=== PATIENT | male | born 1935 | race Caucasian/White ===

== ENCOUNTER 2020-07-17 09:21 | Observation (INO) ==
[2020-07-17] MEDS ORDERED: *HR* Heparin 5,000 UNIT/ML VIAL IVP PRN ×2 (09:57)
[2020-07-17] MEDS ORDERED: *HR* Heparin 5,000 UNIT/ML VIAL IVP ONE (09:57)
[2020-07-17] MEDS ORDERED: Heparin 25,000UNIT/250ML 1/2NS 25,000 UNIT/250 ML IV.SOLN IVC SCH (10:00)
[2020-07-17 10:09] LABS: Alanine Aminotransferase 13 Units/L (7-52); Albumin 4.3 g/dL (3.5-5.7); Albumin/Globulin Ratio 1.5 (1.1-2.2); Alkaline Phosphatase 58 Units/L (34-104); Aspartate Amino Transferase 14 Units/L (13-39); BUN/Creatinine Ratio 17 (6-26); Bilirubin,Direct 0.1 mg/dL (0.0-0.2); Bilirubin,Indirect 0.3 mg/dL (0.0-1.0); Bilirubin,Total 0.4 mg/dL (0.3-1.0); Blood Urea Nitrogen 17 mg/dL (8-23); Calcium 9.5 mg/dL (8.6-10.3); Carbon Dioxide 26 mEq/L (23-29); Chloride 104 mEq/L (98-107); Globulin 2.8 g/dL (2.4-3.5); Glucose 104 mg/dL (70-105); Lipase 28 Units/L (11-82); Osmolality,Calculated 286 (280-300); Potassium 4.2 mEq/L (3.5-5.1); Sodium 137 mEq/L (136-145); Total Protein 7.1 g/dL (6.4-8.9); Troponin I < 0.03 ng/mL (< 0.04); eGFR For African Americans > 60 (> 60); eGFR For Non-African Americans > 60 (> 60)
[2020-07-17 10:14] LABS: Basophils % 0.4 %; Eosinophils # 0.1 K/mcL (0.0-0.6); Eosinophils % 1.3 %; Hematocrit 42.8 % (37.5-50.1); Hemoglobin 13.9 g/dL (12.9-16.9); Immature Granulocytes % 0.2 % (0-4); Lymphocytes # 0.6 K/mcL (0.6-4.6); Lymphocytes % 10.8 %; Mean Corpuscular HGB Conc 32.5 g/dL (31.6-35.5); Mean Corpuscular Hemoglobin 31.3 pg (28.0-33.3); Mean Corpuscular Volume 96.4 fL (83.0-100.0); Mean Platelet Volume 10.1 fL (9.4-12.4); Monocytes # 0.4 K/mcL (0.0-1.3); Monocytes % 8.1 %; Neutrophils # 4.2 K/mcL (1.6-8.9); Platelet Count 206 K/mcL (140-400); Red Blood Count 4.44 M/mcL (4.19-5.50); Red Cell Distribution Width 13.4 % (11.5-14.5); Segmented Neutrophils % 79.2 %; White Blood Count 5.3 K/mcL (4.3-11.1)
[2020-07-17 10:28] LABS: Prothrombin Time 11.3 Seconds (9.4-12.1)
[2020-07-17 10:30] LABS: Activated Partial Thrombo Time 32.9 Seconds (26.0-36.0)
[2020-07-17] MEDS ORDERED: Heparin 25,000UNIT/250ML 1/2NS 25,000 UNIT/250 ML IV.SOLN ONE (10:31)
[2020-07-17 10:32] LABS: Heparin anti-factor XA UFH < 0.04 IU/mL (0.30-0.70)
[2020-07-17] MEDS ORDERED: Naloxone 0.4 MG/ML INJ IVP PRN (11:13)
[2020-07-17 11:40] LABS: Chol/HDL Ratio 2.9 (0-4.9); Cholesterol 170 mg/dL (< 200); HDL Cholesterol 58 mg/dL (40-59); LDL Cholesterol,Calculated 93 mg/dL (< 100); Magnesium 2.1 mg/dL (1.6-2.6); Phosphorous 2.1 mg/dL (2.7-4.5); Triglycerides 94 mg/dL (< 150)
[2020-07-17] MEDS ORDERED: carvediloL 6.25 MG TABLET PO SCH (12:14)
[2020-07-17] MEDS ORDERED: ISOVUE-370 200 ML INFUS..BTL ONE ×2 (14:53→15:55)
[2020-07-17] MEDS ORDERED: Heparin 1,000 UNITS/500 mL 500 ML ONE (14:53)
[2020-07-17] MEDS ORDERED: 0.9 % Sodium Chloride 2,000 ML ONE (14:53)
[2020-07-17] MEDS ORDERED: *HR* Heparin 10,000 UNIT/10 ML VIAL ONE (14:53)
[2020-07-17] MEDS ORDERED: Nitroglycerin 1,000 MCG/10 ML VIAL IV ONE (14:54)
[2020-07-17] MEDS ORDERED: *HR* FentaNYL (PF) 100 MCG/2 ML VIAL ONE (15:26)
[2020-07-17] MEDS ORDERED: *HR* Midazolam HCl 2 MG/2 ML VIAL ONE (15:26)
[2020-07-17] MEDS ORDERED: *HR* Bivalirudin 250 MG VIAL IVC ONE (15:47)
[2020-07-17] MEDS ORDERED: *HR* Ticagrelor 90 MG TABLET ONE (15:57)
[2020-07-17] MEDS ORDERED: Perflutren Lipid Microsphere 1.3 ML in 0.9 % Sodium Chloride 8.7 ML IVP PRN (16:19)
[2020-07-17] MEDS ORDERED: 0.9 % Sodium Chloride 1,000 ML IVC SCH (16:30)
[2020-07-17] MEDS: carvediloL 6.25 MG TABLET PO SCH (18:25)
[2020-07-17] MEDS: Aspirin 81 MG TAB.CHEW PO SCH (18:25)
[2020-07-17] MEDS ORDERED: *HR* Atropine Sulfate 1 MG/10 ML SYRINGE ONE (18:58)
[2020-07-17 20:10] LABS: Hematocrit 37.1 % (37.5-50.1); Hemoglobin 12.3 g/dL (12.9-16.9)
[2020-07-17] MEDS ORDERED: 0.9 % Sodium Chloride 1,000 ML ONE (23:24)
[2020-07-18 03:38] LABS: Hematocrit 38.4 % (37.5-50.1); Hemoglobin 12.5 g/dL (12.9-16.9); Mean Corpuscular HGB Conc 32.6 g/dL (31.6-35.5); Mean Corpuscular Hemoglobin 30.6 pg (28.0-33.3); Mean Corpuscular Volume 94.1 fL (83.0-100.0); Mean Platelet Volume 9.9 fL (9.4-12.4); Platelet Count 192 K/mcL (140-400); Red Blood Count 4.08 M/mcL (4.19-5.50); Red Cell Distribution Width 13.5 % (11.5-14.5); White Blood Count 5.2 K/mcL (4.3-11.1)
[2020-07-18 04:00] LABS: BUN/Creatinine Ratio 17 (6-26); Blood Urea Nitrogen 14 mg/dL (8-23); Calcium 8.5 mg/dL (8.6-10.3); Carbon Dioxide 24 mEq/L (23-29); Chloride 110 mEq/L (98-107); Glucose 128 mg/dL (70-105); Osmolality,Calculated 286 (280-300); Potassium 3.9 mEq/L (3.5-5.1); Sodium 137 mEq/L (136-145); eGFR For African Americans > 60 (> 60); eGFR For Non-African Americans > 60 (> 60)
[2020-07-18] MEDS: carvediloL 6.25 MG TABLET PO SCH ×2 (07:55→16:55)
[2020-07-18] MEDS: Aspirin 81 MG TAB.CHEW PO SCH (07:55)
[2020-07-18] MEDS: *HR* Ticagrelor 90 MG TABLET PO SCH ×2 (07:55→20:21)
[2020-07-18] MEDS: *HR* Heparin 5,000 UNIT/ML VIAL SQ SCH (16:55)
[2020-07-19 04:38] VITALS: BP 95/54
[2020-07-19] MEDS: *HR* Heparin 5,000 UNIT/ML VIAL SQ SCH (06:02)
[2020-07-19 06:28] LABS: Hematocrit 37.8 % (37.5-50.1); Hemoglobin 12.3 g/dL (12.9-16.9); Mean Corpuscular HGB Conc 32.5 g/dL (31.6-35.5); Mean Corpuscular Hemoglobin 30.5 pg (28.0-33.3); Mean Corpuscular Volume 93.8 fL (83.0-100.0); Mean Platelet Volume 9.8 fL (9.4-12.4); Platelet Count 169 K/mcL (140-400); Red Blood Count 4.03 M/mcL (4.19-5.50); Red Cell Distribution Width 13.5 % (11.5-14.5); White Blood Count 5.6 K/mcL (4.3-11.1)
[2020-07-19 06:44] LABS: BUN/Creatinine Ratio 15 (6-26); Blood Urea Nitrogen 12 mg/dL (8-23); Calcium 8.9 mg/dL (8.6-10.3); Carbon Dioxide 27 mEq/L (23-29); Chloride 108 mEq/L (98-107); Glucose 98 mg/dL (70-105); Magnesium 1.9 mg/dL (1.6-2.6); Osmolality,Calculated 286 (280-300); Sodium 138 mEq/L (136-145); eGFR For African Americans > 60 (> 60); eGFR For Non-African Americans > 60 (> 60)
[2020-07-19] MEDS: *HR* Ticagrelor 90 MG TABLET PO SCH (08:37)
[2020-07-19] MEDS: carvediloL 6.25 MG TABLET PO SCH (08:37)
[2020-07-19] MEDS: Aspirin 81 MG TAB.CHEW PO SCH (08:37)
== END 2020-07-19 11:15 | disposition home or self-care (01) ==
LOC: EMEROOARM 09:21 → 3BNU 09:21 → 2NNU 16:39 → ICNU 07-18 00:05
PROVIDERS: ADMIT Student in an Organized Health Care Education/Training Program; ATTEND Student in an Organized Health Care Education/Training Program

== ENCOUNTER 2021-10-13 11:27 | Observation (INO) ==
[2021-10-13 12:10] LABS: Basophils % 0.4 %; Eosinophils # 0.1 K/mcL (0.0-0.6); Eosinophils % 2.2 %; Hematocrit 39.4 % (37.5-50.1); Hemoglobin 12.8 g/dL (12.9-16.9); Immature Granulocytes % 0.2 % (0-4); Lymphocytes # 0.6 K/mcL (0.6-4.6); Lymphocytes % 13.6 %; Mean Corpuscular HGB Conc 32.5 g/dL (31.6-35.5); Mean Corpuscular Hemoglobin 30.7 pg (28.0-33.3); Mean Corpuscular Volume 94.5 fL (83.0-100.0); Mean Platelet Volume 9.9 fL (9.4-12.4); Monocytes # 0.5 K/mcL (0.0-1.3); Monocytes % 11.6 %; Neutrophils # 3.3 K/mcL (1.6-8.9); Platelet Count 185 K/mcL (140-400); Red Blood Count 4.17 M/mcL (4.19-5.50); Red Cell Distribution Width 13.8 % (11.5-14.5); White Blood Count 4.6 K/mcL (4.3-11.1)
[2021-10-13 12:30] LABS: Alanine Aminotransferase 19 Units/L (7-52); Albumin/Globulin Ratio 1.6 (1.1-2.2); Alkaline Phosphatase 61 Units/L (34-104); Aspartate Amino Transferase 13 Units/L (13-39); BUN/Creatinine Ratio 22 (6-26); Bilirubin,Direct 0.1 mg/dL (0.0-0.2); Bilirubin,Indirect 0.4 mg/dL (0.0-1.0); Bilirubin,Total 0.5 mg/dL (0.3-1.0); Blood Urea Nitrogen 23 mg/dL (8-23); Calcium 9.5 mg/dL (8.6-10.3); Carbon Dioxide 30 mEq/L (23-29); Chloride 105 mEq/L (98-107); Globulin 2.5 g/dL (2.4-3.5); Glucose 83 mg/dL (70-105); Magnesium 2.2 mg/dL (1.6-2.6); Osmolality,Calculated 289 (280-300); Potassium 4.2 mEq/L (3.5-5.1); Sodium 138 mEq/L (136-145); Total Protein 6.5 g/dL (6.4-8.9); Troponin I < 0.03 ng/mL (< 0.04); eGFR For African Americans > 60 (> 60); eGFR For Non-African Americans > 60 (> 60)
[2021-10-13 12:38] LABS: Bilirubin,Urine Negative (Negative); Blood,Urine Negative (Negative); Clarity,Urine Clear (Clear); Color,Urine Yellow (Yellow); Glucose,Urine (UA) Normal (Normal); Ketones,Urine Negative (Negative); Leukocyte Esterase,Urine Negative (Negative); Nitrite,Urine Negative (Negative); PH,Urine 6.5 pH Units (5.0-8.0); Protein,Urine Trace mg/dL (Neg-Trace); Specific Gravity,Urine 1.022 (1.010-1.025)
[2021-10-13 12:43] LABS: Thyroid Stimulating Hormone 14.503 mcIU/mL (0.340-5.600)
[2021-10-13 12:43] LABS: VBG HCO3 28 mEq/L (21-27); VBG PCO2 60 mmHg (41-51); VBG PH 7.28 pH Units (7.32-7.42); VBG PO2 36 mmHg (25-50)
[2021-10-13] MEDS ORDERED: Naloxone 0.4 MG/ML INJ IVP PRN (15:53)
[2021-10-13] MEDS ORDERED: Ondansetron 4 MG/2 ML VIAL IVP PRN (15:53)
[2021-10-13] MEDS ORDERED: Acetaminophen 325 MG TABLET PO PRN (15:53)
[2021-10-13] MEDS ORDERED: Perflutren Lipid Microsphere 1.3 ML in 0.9 % Sodium Chloride 8.7 ML IVP PRN (16:19)
[2021-10-13 16:43] LABS: BUN/Creatinine Ratio 24 (6-26); Blood Urea Nitrogen 23 mg/dL (8-23); Calcium 9.1 mg/dL (8.6-10.3); Carbon Dioxide 27 mEq/L (23-29); Chloride 104 mEq/L (98-107); Glucose 105 mg/dL (70-105); Osmolality,Calculated 288 (280-300); Potassium 4.7 mEq/L (3.5-5.1); Sodium 137 mEq/L (136-145); eGFR For African Americans > 60 (> 60); eGFR For Non-African Americans > 60 (> 60)
[2021-10-13] MEDS: *HR* Heparin 5,000 UNIT/ML VIAL SQ SCH (17:42)
[2021-10-14 05:26] LABS: Basophils % 0.4 %; Eosinophils # 0.1 K/mcL (0.0-0.6); Eosinophils % 2.7 %; Hematocrit 37.6 % (37.5-50.1); Hemoglobin 12.4 g/dL (12.9-16.9); Immature Granulocytes % 0.2 % (0-4); Lymphocytes # 0.7 K/mcL (0.6-4.6); Lymphocytes % 14.5 %; Mean Corpuscular Hemoglobin 30.5 pg (28.0-33.3); Mean Corpuscular Volume 92.4 fL (83.0-100.0); Monocytes # 0.6 K/mcL (0.0-1.3); Monocytes % 11.6 %; Neutrophils # 3.5 K/mcL (1.6-8.9); Platelet Count 169 K/mcL (140-400); Red Blood Count 4.07 M/mcL (4.19-5.50); Red Cell Distribution Width 13.5 % (11.5-14.5); Segmented Neutrophils % 70.6 %; White Blood Count 4.9 K/mcL (4.3-11.1)
[2021-10-14] MEDS: *HR* Heparin 5,000 UNIT/ML VIAL SQ SCH (05:38)
[2021-10-14 05:54] LABS: Phosphorous 2.7 mg/dL (2.7-4.5); Troponin I < 0.03 ng/mL (< 0.04)
[2021-10-14] MEDS ORDERED: Aspirin Enteric Coated 81 MG Tablet PO SCH (09:00)
[2021-10-14 11:40] VITALS: BP 123/57; PULSE 77; TEMP 98; O2SAT 95
[2021-10-14] MEDS ORDERED: amLODIPine 5 MG TABLET PO SCH (12:15)
== END 2021-10-14 16:40 | disposition home or self-care (01) ==
LOC: EMEROOARM 11:27 → 3BNU 11:27 → SUATTDRO 15:47 → 3BNU 16:39
PROVIDERS: ADMIT Internal Medicine; ATTEND Internal Medicine